=== PATIENT | female | born 1980 | race Caucasian/White ===

== ENCOUNTER 2016-12-15 09:49 | Emergency (ER) | payer MEDICARE, MEDICAID ==
[~2016-12-15] VITALS: Ht 170.2 cm; Wt 121.6 kg
[2016-12-15] MEDS ORDERED: CETIRIZINE HCL 10 MG TABLET. PO STA (10:36)
[2016-12-15] MEDS ORDERED: BENZONATATE 100 MG CAPSULE. PO ONE (10:45)
[2016-12-15] MEDS ORDERED: predniSONE 20 MG TABLET PO ONE (10:45)
[2016-12-15] MEDS ORDERED: IPRATRPIUM/ALBUTEROL 0.5/2.5MG 3 ML NEBU. NEB ONE (10:45)
--- NOTE | 2016-12-15 10:54 | PHYS DOC ---
Adult General Chief Complaint Chief Complaint: COUGH HPI HPI Patient is a 36 year old female who presents with a productive cough and wheezing that began one week ago. Patient states she has history of bronchitis as well as asthma. She is currently a smoker. Patient states the symptoms are similar to the last time she had bronchitis. Patient states she has also had subjective fevers. 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 Review of Systems Review of Systems Constitutional: Denies fever or chills [] Eyes: Denies change in visual acuity, redness, or eye pain [] HENT: Denies nasal congestion or sore throat [] Respiratory: Productive cough and wheezing, denies shortness of breath. Cardiovascular: No additional information not addressed in HPI [] GI: Denies abdominal pain, nausea, vomiting, bloody stools or diarrhea [] : Denies dysuria or hematuria [] Neurologic: Denies headache, focal weakness or sensory changes [] Current Medications Current Medications Current Medications Medications (Trade) Dose Ordered Sig/Saima Start Time Stop Time Status Last Admin Dose Admin Albuterol/ Ipratropium (Duoneb) 3 ml 1X ONCE 12/15/16 10:45 12/15/16 11:02 DC 12/15/16 11:04 3 ML Benzonatate (Tessalon Perle) 100 mg 1X ONCE 12/15/16 10:45 12/15/16 11:02 DC 12/15/16 11:41 100 MG Cetirizine HCl (ZyrTEC) 10 mg 1X STAT 12/15/16 10:36 12/15/16 11:02 DC 12/15/16 11:41 10 MG Prednisone (Prednisone) 60 mg 1X ONCE 12/15/16 10:45 12/15/16 11:02 DC 12/15/16 11:41 60 MG Allergies Allergies Allergies Coded Allergies Type Severity Reaction Last Updated Verified ciprofloxacin Allergy Unknown Itching 12/15/16 Yes Physical Exam Physical Exam Constitutional: Well developed, well nourished, no acute distress, non-toxic appearance. [] HENT: Normocephalic, atraumatic, bilateral external ears normal, oropharynx moist, no oral exudates, nose normal. [] Eyes: PERRLA, EOMI, conjunctiva normal, no discharge. [] Neck: Normal range of motion, no tenderness, supple, no stridor. [] Cardiovascular:Heart rate regular rhythm, no murmur [] Lungs & Thorax: Patient is actively coughing in the ED. Lung sounds tight. Abdomen: Bowel sounds normal, soft, no tenderness, no masses, no pulsatile masses. [] Skin: Warm, dry, a laceration approximately 2 cm noted on occipital. Back: No tenderness, no CVA tenderness. [] Extremities:No tenderness, no cyanosis, no clubbing, ROM intact, no edema. [] Neurologic: Alert and oriented X 3, normal motor function, normal sensory function, no focal deficits noted. Cranial nerves II-12 intact Psychologic: Affect normal, judgement normal, mood normal. [] Current Patient Data Vital Signs Vital Signs Date Time Temp Pulse Resp B/P (MAP) Pulse Ox O2 Delivery O2 Flow Rate FiO2 12/15/16 11:05 97 Room Air 12/15/16 10:41 98.2 79 22 98.2 EKG EKG [] Radiology/Procedures Radiology/Procedures [] Course & Med Decision Making Course & Med Decision Making Pertinent Labs and Imaging studies reviewed. (See chart for details) This is a 36-year-old female patient with history of bronchitis and presenting today with productive cough and wheezing for one week. Patient was actively coughing on arrival to the ED. Chest x-ray interpreted by radiologist was negative, patient was given a DuoNeb treatment in the ED. Given prednisone and Tessalon Perles. Patient be discharged with the same. We also discharged with azithromycin. 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 I recommended she tries to follow-up with the PCP in the next 7 days. Smoking cessation education provided. Dragon Disclaimer Dragon Disclaimer This electronic medical record was generated, in whole or in part, using a voice recognition dictation system. Departure Departure Impression: Primary Impression: Acute bronchitis Additional Impression: Smoking addiction Disposition: 01 HOME, SELF-CARE Condition: STABLE Referrals: UNKNOWN PCP NAME (PCP) follow up with your doctor in one week Patient Instructions: Acute Bronchitis, Smoking Cessation Additional Instructions: You were seen with symptoms consistent of acute bronchitis. Please take the prescribed medicines as ordered. Consider smoking cessation. Follow-up with your doctor in one week. Scripts Prednisone (PREDNISONE) 50 Mg Tablet 1 TAB PO DAILY, #4 TAB Prov: JESSICAAADOLFO APRN 12/15/16 Benzonatate (TESSALON PERLE) 100 Mg Capsule 1 CAP PO TID, #30 CAP Prov: ADOLFO WHITMAN APRN 12/15/16 Albuterol Sulfate (PROVENTIL HFA INHALER) 6.7 Gm Hfa.aer.ad 1 PUFF IH PRN Q4HRS Y for FOR ASTHMA, #1 INHALER 0 Refills Prov: ADOLFO WHITMAN APRN 12/15/16 Azithromycin (ZITHROMAX) 250 Mg Tablet 1 PKG PO UD, #1 PKG Prov: ADOLFO WHITMAN APRN 12/15/16 Problem Qualifiers Primary Impression: Acute bronchitis Bronchitis organism: unspecified organism Qualified Codes: J20.9 - Acute bronchitis, unspecified ADOLFO WHITMAN APRN Dec 15, 2016 10:54
[2016-12-15] MEDS ORDERED: MONT10TA9 PO (11:12)
[2016-12-15] MEDS ORDERED: VENTOLIN HFA18 GM INH (11:12)
[2016-12-15] MEDS ORDERED: GABA-585 PO (11:12)
[2016-12-15] MEDS ORDERED: METF500T4 PO (11:12)
[2016-12-15] MEDS ORDERED: LISD20CA4 PO (11:13)
[2016-12-15] MEDS ORDERED: SERT25TA PO (11:13)
--- NOTE | 2016-12-15 11:15 | RAD ---
Indication cough and shortness of air. History of asthma. Frontal and lateral views of the chest were obtained. No prior imaging is available. The heart and pulmonary vessels and mediastinum appear unremarkable. The lungs are clear. There is no pleural fluid or pneumothorax. The bony structures appear grossly intact. IMPRESSION: No acute or focal process is seen in the chest
[2016-12-15] MEDS ORDERED: PROVENTIL HFA6.7 GM IH (12:22)
[2016-12-15] MEDS ORDERED: PRED50TA PO (12:22)
[2016-12-15] MEDS ORDERED: BENZ100C PO (12:22)
[2016-12-15] MEDS ORDERED: AZIT250T PO (12:22)
[2016-12-15 12:30] VITALS: BP 129/60
== END 2016-12-15 12:45 | disposition home or self-care (01) ==
LOC: ER 09:49
DX: J20.9 Acute bronchitis, unspecified (principal); J45.909 Unspecified asthma, uncomplicated; F17.200 Nicotine dependence, unspecified, uncomplicated; Z88.1 Allergy status to other antibiotic agents
CPT/HCPCS: 71020; 94250; 94640; 99284; J7512; J7620